=== PATIENT | female | born 1965 | race Caucasian/White ===

== ENCOUNTER 2016-12-01 13:52 | Emergency (ER) | payer MEDICAID ==
[~2016-12-01] VITALS: Ht 170.2 cm; Wt 82.1 kg
[2016-12-01 18:05] VITALS: BP 155/101
== END 2016-12-01 18:05 | disposition home or self-care (01) ==
LOC: ED 13:52
DX: S05.01XA Injury of conjunctiva and corneal abrasion without foreign body, right eye, initial encounter (principal); H16.001 Unspecified corneal ulcer, right eye; H10.9 Unspecified conjunctivitis; I10 Essential (primary) hypertension; W22.8XXA Striking against or struck by other objects, initial encounter; Y93.89 Activity, other specified; Y99.8 Other external cause status; Y92.89 Other specified places as the place of occurrence of the external cause
CPT/HCPCS: J3490

== ENCOUNTER 2017-01-28 20:55 | Emergency (ER) | payer SELFPAY ==
[2017-01-28 21:46] VITALS: BP 149/95
== END 2017-01-29 02:31 | disposition home or self-care (01) ==
LOC: ED 20:55
DX: S52.502A Unspecified fracture of the lower end of left radius, initial encounter for closed fracture (principal); I10 Essential (primary) hypertension; W19.XXXA Unspecified fall, initial encounter; Y93.89 Activity, other specified; Y92.89 Other specified places as the place of occurrence of the external cause; Y99.8 Other external cause status
CPT/HCPCS: A4570